=== PATIENT | male | born 1975 | race Caucasian/White ===

== ENCOUNTER 2024-09-21 08:45 | Day surgery (SDC) | payer BC ==
[~2024-09-21] VITALS: Ht 172.7 cm; Wt 123.5 kg
[2024-09-21] VITALS (14 sets, daily range): BP systolic 114–150; BP diastolic 65–101
[~2024-09-21 08:45] MED LIST: Acetaminophen 500 MG Tab PO SCH; CRUTCH USE; CeFAZolin Sodium 2,000 MG in NS 100 ML IV SCH; Chlorhexidine Mouth Care 15 ML UDC MT SCH; ESOM20; HYDACE5 PO; IBU800 MG PO; LISI20 PO; Lactated Ringer's 1,000 ML IV SCH; OMEP20ER PO; OXYACE5T PO; OxyCODONE HCL 10 MG TABCR PO SCH; Ropivacaine 0.5% HCl/Pf 123.125 MG,EPINEPHrine HCL 0.25 MG,Ketorolac Tromethamine 15 MG... INFIL SCH; Tranexamic Acid 1,000 MG in NS 100 ML IV SCH
--- NOTE | 2024-09-21 09:00 | NUR ---
AMBULATORY IN SDS. PT A&OX2-REPORTS 6/10 LEFT KNEE PAIN. PT STATES THAT HE IS VERY ANXIOUS ABOUT THE SURGERY TODAY. HISTORY AND ALLERGIES REVIEWED. LUNGS CLEAR-PT DENIES MARIE AND SOB. SATS >90% ON RA. NPO STATUS CONFIRMED.
[2024-09-21] MEDS ORDERED: CeFAZolin Sodium 2,000 MG VIAL ONE (09:27)
[2024-09-21] MEDS ORDERED: propofoL 20 ML IV ONE ×5 (09:42→10:56)
[2024-09-21] MEDS ORDERED: FentaNYL Citrate 50 MCG/ML 2 ML Injection ONE (09:42)
[2024-09-21] MEDS ORDERED: Midazolam HCl 1MG / ML 2ML Vial ONE (09:42)
[2024-09-21] MEDS ORDERED: Ketorolac Tromethamine 30mg Vial ONE (10:25)
[2024-09-21] MEDS ORDERED: Dexamethasone Sod Phos 10 MG/ML 1ML VIAL ONE (10:25)
[2024-09-21] MEDS ORDERED: Ondansetron HCl 2 MG / ML 2ML Vial ONE (10:25)
[2024-09-21] MEDS ORDERED: CeFAZolin Sodium 1000 mg Vial ONE (10:30)
[2024-09-21] MEDS ORDERED: Metoclopramide HCl 5MG / ML 2ML Vial IV PRN (11:55)
[2024-09-21] MEDS ORDERED: Ondansetron HCl 2 MG / ML 2ML Vial IV PRN (12:00)
[2024-09-21] MEDS ORDERED: Lactated Ringer's 1,000 ML IV SCH (12:00)
[2024-09-21] MEDS ORDERED: Magnesium Hydroxide Conc 10 ML UDC PO PRN (12:00)
[2024-09-21] MEDS ORDERED: FLU VACC TS2024-25(6MOS UP)/PF 45 MCG/0.5 ML SYRINGE IM SCH (12:00)
[2024-09-21] MEDS ORDERED: DiphenhydrAMINE HCL 25 MG Cap PO PRN (12:00)
[2024-09-21] MEDS ORDERED: HYDROmorphone HCl/Pf 1MG SYR IV PRN (12:05)
[2024-09-21] MEDS ORDERED: OxyCODONE HCL 5 MG TAB PO PRN ×2 (12:05)
[2024-09-21] MEDS ORDERED: Promethazine HCl 25 MG Tab PO PRN (12:05)
[2024-09-21] MEDS ORDERED: Bisacodyl 10 MG Supp PR PRN (12:05)
[2024-09-21] MEDS ORDERED: Acetaminophen 500 MG Tab PO SCH (16:00)
[2024-09-21] MEDS ORDERED: ASPI81CH PO (16:41)
[2024-09-21] MEDS ORDERED: CeFAZolin Sodium 3,000 MG in NS 100 ML IV SCH (18:00)
[2024-09-21] MEDS ORDERED: Ketorolac Tromethamine 15mg Vial IV SCH (18:00)
[2024-09-21] MEDS ORDERED: CeFAZolin Sodium 2,000 MG in NS 100 ML IV SCH (18:00)
--- NOTE | 2024-09-21 18:30 | NUR ---
DISCHARGE PT WORKED w/ THERAPY. PAIN WELL CONTROLLED. EATING, DRINKING, & VOIDED x 1. DRSGS & POLAR PACK SENT w/ PT. ESCORTED OUT VIA W/C.
[2024-09-21] MEDS ORDERED: Docusate Sodium 100 MG Cap PO SCH (21:00)
[2024-09-22] MEDS ORDERED: Aspirin 81 MG Chew PO SCH (09:00)
== END 2024-09-21 18:30 | disposition home or self-care (01) ==
LOC: ORSCMMR 08:45 → ORD 10:15 → ORSCMMR 10:15 → SURS 12:22 → ORSCMMR 18:30
PROVIDERS: Orthopaedic Surgery
PROC: 0SRD0JA Replacement of Left Knee Joint with Synthetic Substitute, Uncemented, Open Approach (ICD-10-PCS; principal; 2024-09-21 10:15)
DX: M17.12 Unilateral primary osteoarthritis, left knee (principal); I10 Essential (primary) hypertension; Z79.899 Other long term (current) drug therapy; E66.01 Morbid (severe) obesity due to excess calories; Z68.41 Body mass index [BMI] 40.0-44.9, adult
CPT/HCPCS: 73560-LT; 97110; 97116; 97161; 97530; A9270; C1713; C1776; J0171; J0690; J0735; J1100; J1885; J2250; J2405; J2704; J2795; J3010; J7120